=== PATIENT | male | born 2000 | race African-American/Black ===

== ENCOUNTER 2023-02-18 00:05 | Emergency (ER) | payer OTHER ==
[~2023-02-18] VITALS: Ht 182.9 cm; Wt 108.9 kg
[2023-02-18 00:14] VITALS: BP 136/72; PULSE 98; RESP 20; TEMP 97.4; O2SAT 97
[2023-02-18] MEDS ORDERED: IBUPROFEN 600 MG TAB PO ONE (00:35)
[2023-02-18 01:04] VITALS: BP 136/72; PULSE 98; RESP 20; TEMP 97.4; O2SAT 97
== END 2023-02-18 01:04 | disposition home or self-care (01) ==
LOC: MED 00:05
DX: S16.1XXA Strain of muscle, fascia and tendon at neck level, initial encounter (principal); V49.88XA Car occupant (driver) (passenger) injured in other specified transport accidents, initial encounter; Y93.89 Activity, other specified; Y92.89 Other specified places as the place of occurrence of the external cause; Y99.8 Other external cause status
CPT/HCPCS: 99283